=== PATIENT | male | born 1995 | race Caucasian/White ===

== ENCOUNTER 2017-06-01 14:38 | Emergency (ER) | payer OTHER ==
[2017-06-01] MEDS ORDERED: FAMOTIDINE 20 MG TABLET PO ONE (14:46)
[2017-06-01] MEDS ORDERED: PREDNISONE 20 MG TABLET PO ONE (14:46)
--- NOTE | 2017-06-01 14:49 | ER Document Report ---
ED General - General Chief Complaint: Allergic Reaction Stated Complaint: POSSIBLE ALLERGIC REACTION Time Seen by Provider: 06/01/17 14:46 Mode of Arrival: Ambulatory Information source: Patient Notes: 22-year-old male presents with complaints of allergic reaction just prior to arrival. Pt took 3 benadyl prior to arrival. denies any difficulty breathing or swallowing TRAVEL OUTSIDE OF THE [place] IN LAST 30 DAYS: No - HPI Onset: Just prior to arrival Onset/Duration: Sudden Quality of pain: No pain Severity: Mild Pain Level: Denies Associated symptoms: Other Exacerbated by: Denies Relieved by: Denies Similar symptoms previously: No Recently seen / treated by doctor: No - Related Data Allergies/Adverse Reactions: No Known Allergies Allergy (Unverified 06/01/17 14:44) Past Medical History - Social History Smoking Status: Never Smoker Cigarette use (# per day): No Chew tobacco use (# tins/day): No Smoking Education Provided: No Family History: Reviewed & Not Pertinent Renal/ Medical History: Denies: Hx Peritoneal Dialysis Review of Systems - Review of Systems Notes: REVIEW OF SYSTEMS: CONSTITUTIONAL : Denies fever, chills, or sweats. Denies recent illness. EENT: Denies eye, ear, throat, or mouth pain or symptoms. Denies nasal or sinus congestion or discharge. Denies throat, tongue, or mouth swelling or difficulty swallowing. CARDIOVASCULAR: Denies chest pain. Denies palpitations or racing or irregular heart beat. Denies ankle edema. RESPIRATORY: Denies cough, cold, or chest congestion. Denies shortness of breath, difficulty breathing, or wheezing. GASTROINTESTINAL: Denies abdominal pain or distention. Denies nausea, vomiting , or diarrhea. Denies blood in vomitus, stools, or per rectum. Denies black, tarry stools. Denies constipation. GENITOURINARY: Denies difficulty urinating, painful urination, burning, frequency, blood in urine, or discharge. MUSCULOSKELETAL: Denies back or neck pain or stiffness. Denies joint pain or swelling. SKIN: allergic reaction HEMATOLOGIC : Denies easy bruising or bleeding. LYMPHATIC: Denies swollen, enlarged glands. NEUROLOGICAL: Denies confusion or altered mental status. Denies passing out or loss of consciousness. Denies dizziness or lightheadedness. Denies headache. Denies weakness or paralysis or loss of use of either side. Denies problems with gait or speech. Denies sensory loss, numbness, or tingling. Denies seizures. PSYCHIATRIC: Denies anxiety or stress. Denies depression, suicidal ideation, or homicidal ideation. ALL OTHER SYSTEMS REVIEWED AND NEGATIVE. Dictation was performed using [employer] voice recognition software PHYSICAL EXAMINATION: GENERAL: Well-appearing, well-nourished and in no acute distress. HEAD: Atraumatic, normocephalic. EYES: Pupils equal round and reactive to light, extraocular movements intact, sclera anicteric, conjunctiva are normal. ENT: Nares patent, oropharynx clear without exudates. Moist mucous membranes. NECK: Normal range of motion, supple without lymphadenopathy LUNGS: Breath sounds clear to auscultation bilaterally and equal. No wheezes rales or rhonchi. HEART: Regular rate and rhythm without murmurs ABDOMEN: Soft, nontender, nondistended abdomen. No guarding, no rebound. No masses appreciated. Musculoskeletal: Normal range of motion, no pitting or edema. No cyanosis. NEUROLOGICAL: Cranial nerves grossly intact. Normal speech, normal gait. Normal sensory, motor exams PSYCH: Normal mood, normal affect. SKIN: hives all throughout Physical Exam - Vital signs Vitals: Temp Pulse Resp BP Pulse Ox 98.5 F 127 H 24 H 117/64 96 06/01/17 14:43 06/01/17 14:43 06/01/17 14:43 06/01/17 14:43 06/01/17 14:43 Course - Re-evaluation Re-evalutation: 06/01/17 14:48 Patient having obvious allergic reaction to unknown substance that he was exposed to in the garage. He has no airway compromise patient will be treated symptomatically, and will be watched. initially tachycardic 06/01/17 19:03 Patient noted significant improvement of symptoms, he looks quite well will be discharged home with close follow-up EpiPen has been provided After performing a Medical Screening Examination, I estimate there is LOW risk for AIRWAY COMPROMISE, ANAPHYLAXIS, CELLULITIS, EPIGLOTTIS, or NECROTIZING FASCIITIS, thus I consider the discharge disposition reasonable. Also, there is no evidence or peritonitis, sepsis, or toxicity. I have reevaluated this patient multiple times and no significant life threatening changes are noted. The patient and I have discussed the diagnosis and risks, and we agree with discharging home with close follow-up with the understanding that symptoms and presentations can change. We also discussed returning to the Emergency Department immediately if new or worsening symptoms occur. We have discussed the symptoms which are most concerning (e.g., difficulty breathing or swallowing , fever, changing or worsening pain) that necessitate immediate return. - Vital Signs Vital signs: Temp Pulse Resp BP Pulse Ox 97.8 F 74 18 116/77 100 06/01/17 16:11 06/01/17 16:11 06/01/17 16:11 06/01/17 16:11 06/01/17 16:11 Discharge - Discharge Clinical Impression: Hives Allergic reaction Qualifiers: Encounter type: initial encounter Qualified Code(s): T78.40XA - Allergy, unspecified, initial encounter Condition: Stable Disposition: HOME, SELF-CARE Instructions: Acute Allergic Reaction ([facility]) Additional Instructions: benadryl 50mg every 6 hours Prescriptions: Epinephrine [Epipen] 0.3 mg IM ASDIR PRN #1 auto.injct PRN Reason: Famotidine [Pepcid 20 mg Tablet] 20 mg PO DAILY #5 tablet Prednisone [Deltasone 20 mg Tablet] 3 tab PO DAILY 5 Days tablet Referrals: ROJAS CUEVAS MD [NO LOCAL MD] - Follow up tomorrow
[2017-06-01 16:12] VITALS: BP 116/77
== END 2017-06-01 16:15 | disposition home or self-care (01) ==
LOC: ER 14:38
DX: L50.9 Urticaria, unspecified (principal); T78.40XA Allergy, unspecified, initial encounter; X58.XXXA Exposure to other specified factors, initial encounter
CPT/HCPCS: 99283; J7512